=== PATIENT | male | born 1965 | race Two or more races ===

== ENCOUNTER 2021-07-02 13:09 | Inpatient (IN) | payer MEDICAID, OTHER ==
[~2021-07-02] VITALS: Ht 165.1 cm; Wt 90.0 kg
[2021-07-02] MEDS ORDERED: SODIUM CHLORIDE 0.9% 500 ML IVB ONE (13:30)
[2021-07-02] MEDS ORDERED: ONDANSETRON HCL 4 MG/2 ML VIAL IV ONE ×2 (13:30→19:00)
[2021-07-02] MEDS ORDERED: MORPHINE SULFATE 4 MG/ML SYR/VIAL IV ONE (13:30)
[2021-07-02] MEDS ORDERED: GASTROGRAFIN 120 ML SOL ONE ×2 (14:24→20:23)
[2021-07-02 14:28] LABS: Basophils # (auto) 0 10 ^3/uL (0-0.2); Basophils % (auto) 0.3 % (0.0-2.0); Eosinophils # (auto) 0.1 10 ^3/uL (0-0.8); Eosinophils % (auto) 0.7 % (0.0-7.0); Hematocrit 41.4 % (41.0-53.0); Hemoglobin 14.6 g/dL (13.5-17.5); Lymphocytes # (auto) 1.8 10 ^3/uL (0.4-5.4); Lymphocytes % (auto) 24.3 % (10.0-50.0); Mean Corpuscular Hemoglobin 32.7 pg (28.0-32.0); Mean Corpuscular Hgb Conc. 35.2 g/dL (32.0-36.0); Monocytes # (auto) 1.1 10 ^3/uL (0-1.3); Monocytes % (auto) 14.5 % (0.0-12.0); Neutrophils # (auto) 4.4 10 ^3/uL (1.6-8.6); Neutrophils % (auto) 60.2 % (37.0-80.0); Nucleated Red Blood Cells % 0.2 %; Red Blood Cells 4.46 10^6/uL (4.5-5.90); Red Cell Distribution Width 12.6 % (11.8-14.3); White Blood Cell 7.3 10^3/uL (4.4-10.8)
[2021-07-02] MEDS ORDERED: LACTATED RINGER'S 1,000 ML IV ONE (14:30)
[2021-07-02] MEDS ORDERED: metroNIDAZOLE 500MG/100ML 100 ML IV ONE (14:30)
[2021-07-02] MEDS ORDERED: cefTRIAXone 1GM/50ML D5W 50 ML IV ONE ×2 (14:30→14:45)
[2021-07-02] MEDS ORDERED: NITROGLYCERIN 0.4 MG SL TAB SL PRN (14:30)
[2021-07-02] MEDS ORDERED: MORPHINE SULFATE INJECTION 2 MG/ML SYRG IV PRN (14:30)
[2021-07-02 14:37] LABS: Albumin 2.8 g/dL (3.4-5.0); BUN/Creatinine Ratio 8.6; Calcium 9.2 mg/dL (8.5-10.1); Potassium 3.5 mmol/L (3.5-5.1)
[2021-07-02 14:39] LABS: Bilirubin, Total 0.8 mg/dL (0.2-1.0); Total Protein 7.4 g/dL (6.4-8.2)
[2021-07-02] MEDS ORDERED: PARO1TAB33 PO (16:59)
[2021-07-02] MEDS ORDERED: TRAZ100T3 PO (16:59)
[2021-07-02] MEDS ORDERED: ZINC220C8 PO (17:01)
[2021-07-02] MEDS ORDERED: CHOL20007 PO (17:01)
[2021-07-02] MEDS ORDERED: BUDE1SUS9 (17:01)
[2021-07-02] MEDS ORDERED: MULT1CHW28 PO (17:01)
[2021-07-02] MEDS ORDERED: ASCO500T11 PO (17:01)
[2021-07-02] MEDS ORDERED: diphenhdrAMINE HCL 50 MG/1 ML VL IV ONE (19:00)
[2021-07-02] MEDS ORDERED: DICYCLOMINE HCL (10MG/ML) 2 ML AMPULE IM ONE (19:00)
[2021-07-02 23:00] VITALS: BP 124/64
[2021-07-03] MEDS ORDERED: DICYCLOMINE HCL (10MG/ML) 2 ML AMPULE IM SCH
[2021-07-03] MEDS: DICYCLOMINE HCL 10 MG CAP PO SCH ×5 (00:59→23:51)
[2021-07-03] MEDS ORDERED: INFLUENZA QUAD 2020-2021 0.5 ML SYRG IM ONE (02:15)
[2021-07-03 05:00] VITALS: BP 100/50
[2021-07-03] MEDS ORDERED: cefTRIAXone 1GM/50ML D5W 50 ML IV ONE (07:15)
[2021-07-03] MEDS ORDERED: metroNIDAZOLE 500MG/100ML 100 ML IV ONE (07:15)
[2021-07-03] MEDS ORDERED: ALUM & MAG HYDROX-SIMETH LIQ(MAALOX) 30 ML PO PRN (07:30)
[2021-07-03] MEDS ORDERED: MORPHINE SULFATE INJECTION 2 MG/ML SYRG IV PRN (07:30)
[2021-07-03] MEDS ORDERED: METOCLOPRAMIDE HCL 5MG/ml INJ 2ml VIAL IV PRN (07:30)
[2021-07-03] MEDS ORDERED: LORazepam 0.5 MG TAB PO PRN (07:30)
[2021-07-03] MEDS ORDERED: ACETAMINOPHEN 325 MG TAB PO PRN (07:30)
[2021-07-03] MEDS ORDERED: DOCUSATE SOD 100 MG CAP PO PRN (07:30)
[2021-07-03] MEDS ORDERED: HYDROcodone-ACET 5/325MG TAB PO PRN (07:30)
[2021-07-03 08:59] LABS: Basophils # (auto) 0 10 ^3/uL (0-0.2); Basophils % (auto) 0.5 % (0.0-2.0); Eosinophils # (auto) 0.1 10 ^3/uL (0-0.8); Eosinophils % (auto) 1.1 % (0.0-7.0); Hematocrit 37.7 % (41.0-53.0); Hemoglobin 12.8 g/dL (13.5-17.5); Lymphocytes # (auto) 1.7 10 ^3/uL (0.4-5.4); Mean Corpuscular Hemoglobin 31.7 pg (28.0-32.0); Monocytes # (auto) 1.1 10 ^3/uL (0-1.3); Monocytes % (auto) 13.7 % (0.0-12.0); Neutrophils # (auto) 5.1 10 ^3/uL (1.6-8.6); Neutrophils % (auto) 63.7 % (37.0-80.0); Red Blood Cells 4.06 10^6/uL (4.5-5.90); Red Cell Distribution Width 12.5 % (11.8-14.3)
[2021-07-03 09:00] VITALS: BP 109/64
[2021-07-03 09:14] LABS: Cholesterol 117 mg/dL (< 200); HDL Cholesterol 28 mg/dL (40-59); LDL Cholesterol 69 mg/dL (< 100); Triglycerides 87 mg/dL (< 150)
[2021-07-03] MEDS ORDERED: ENOXAPARIN SOD 40 MG/0.4 ML SYRINGE SC SCH (10:00)
[2021-07-03] MEDS ORDERED: PARoxetine 20 MG TAB PO SCH ×2 (10:00→22:00)
[2021-07-03] MEDS: ENOXAPARIN SOD 40 MG/0.4 ML SYRINGE SC SCH (11:06)
[2021-07-03] MEDS: D5W/SOD CHLO 0.9% 1,000 ML IV SCH (11:06)
[2021-07-03] MEDS: FAMOTIDINE (10MG/ML) 2ML VL IV SCH ×2 (11:06→21:19)
[2021-07-03 13:00] VITALS: BP 128/74
[2021-07-03] MEDS: metroNIDAZOLE 500MG/100ML 100 ML IV SCH ×2 (15:00→21:19)
[2021-07-03 16:39] VITALS: BP 111/66
[2021-07-03 22:00] VITALS: BP 104/56
[2021-07-04] MEDS: D5W/SOD CHLO 0.9% 1,000 ML IV SCH (03:30)
[2021-07-04 05:00] VITALS: BP 112/63
[2021-07-04] MEDS: metroNIDAZOLE 500MG/100ML 100 ML IV SCH (05:16)
[2021-07-04] MEDS: DICYCLOMINE HCL 10 MG CAP PO SCH (05:17)
[2021-07-04 07:03] LABS: Urine Bacteria NONE SEEN /hpf (None Seen); Urine Blood Negative /uL (Negative); Urine Mucus FEW (None Seen); Urine Specific Gravity 1.032 (1.001-1.035); Urine WBC 3 /hpf (0 - 3)
[2021-07-04 07:09] LABS: Amphetamine Screen, Urine NEGATIVE (NEGATIVE); Barbiturate Scree,Urine NEGATIVE (NEGATIVE); Benzodiazephine Screen, Urine NEGATIVE (NEGATIVE); Cannabinoid Screen, Urine NEGATIVE (NEGATIVE); Cocaine Screen, Urine NEGATIVE (NEGATIVE); Opiate Scree,Urine NEGATIVE (NEGATIVE); Phencyclidine Screen, Urine NEGATIVE (NEGATIVE)
[2021-07-04 07:36] VITALS: BP 127/69
[2021-07-04 09:00] VITALS: BP 127/69
[2021-07-04] MEDS ORDERED: cefTRIAXone 1GM/50ML D5W 50 ML IV SCH (09:00)
[2021-07-04] MEDS: ENOXAPARIN SOD 40 MG/0.4 ML SYRINGE SC SCH (10:00)
[2021-07-04] MEDS: FAMOTIDINE (10MG/ML) 2ML VL IV SCH (10:38)
[2021-07-04 11:25] VITALS: BP 127/69
== END 2021-07-04 13:25 | disposition home or self-care (01) | DRG 390 ==
LOC: ER 13:09 → OVERFLOW 14:26 → WEST WING 21:25
PROVIDERS: ADMIT Hospitalist; ATTEND Family Medicine
DX: K56.600 Partial intestinal obstruction, unspecified as to cause (principal); I10 Essential (primary) hypertension; E66.01 Morbid (severe) obesity due to excess calories; Z68.33 Body mass index [BMI] 33.0-33.9, adult; Z20.822 Contact with and (suspected) exposure to COVID-19; F32.A Depression, unspecified; Z83.3 Family history of diabetes mellitus; R73.9 Hyperglycemia, unspecified; Z53.29 Procedure and treatment not carried out because of patient's decision for other reasons; E78.5 Hyperlipidemia, unspecified; Z88.8 Allergy status to other drugs, medicaments and biological substances
CPT/HCPCS: 36415; 74176; 74250; 80053; 80061; 80307; 81001; 82150; 83036; 83690; 84484; 85025; 87040; 87086; 87426; 93005; 93306; 96365; 96366; 96368; 96372; 96375; G0378; J0696; J2405; J3490; J7042